=== PATIENT | female | born 1990 | race Caucasian/White ===

== ENCOUNTER → 2024-09-27 13:54 | Outpatient (REF) | payer OTHER, SELFPAY | LOC: HWRAD 13:54 | PROVIDERS: ATTENDING PHYSICIAN Family Medicine | DX: Z13.810 Encounter for screening for upper gastrointestinal disorder (principal); Z13.6 Encounter for screening for cardiovascular disorders; Z80.0 Family history of malignant neoplasm of digestive organs; K82.4 Cholesterolosis of gallbladder; N30.10 Interstitial cystitis (chronic) without hematuria | CPT/HCPCS: 76700 ==